=== PATIENT | female | born 1955 | race Caucasian/White ===

== ENCOUNTER → 2018-04-16 | Outpatient (CLI) | payer BC ==
--- NOTE | 2018-04-16 15:13 | DIREP ---
PROCEDURE:CT HEAD WITHOUT AND WITH CONTRAST TECHNIQUE:Axial cuts were obtained through the head. Then following the intravenous administration of contrast material, additional cuts were obtained through the head. The images were viewed at brain and bone settings. COMPARISON:None. INDICATIONS:NEUROLOGICAL DEFICIT PRESENT, MEMORY CHANGES FINDINGS: VENTRICLES:Normal. CEREBRUM:Normal. CEREBELLUM:Normal. BRAINSTEM:Normal. SKULL:Normal. SINUSES:Normal. OTHER:Negative. CONCLUSION: 1. CT scan of the brain appears normal. Dictated by: Ángel Castellanos M.D. on 04/16/2018 at 02:10 PM
--- NOTE | 2018-04-16 16:03 | DIREP ---
PROCEDURE:US ABDOMEN LIMITED COMPARISON:None. INDICATIONS:R10.31 RLQ ABD PAIN FINDINGS: LIVER:Normal hepatic echotexture. The left anechoic cyst, 2.6 cm. No solid lesion identified. Normal hepatopetal portal venous flow direction reported. BILIARY:Normal appearing gallbladder and biliary tree. No biliary duct dilatation, CBD 0.3 cm. Negative sonographic Gonzalez's sign. PANCREAS:Normal visualized segments. RIGHT KIDNEY:Normal size and echotexture 10.2 x 3.6 x 4.5 cm. No hydronephrosis. Upper pole cyst, 1.3 cm. OTHER:Negative. No ascites is identified. CONCLUSION: 1. No cholelithiasis, acute cholecystitis or biliary duct obstruction. 2. Right renal cyst 1.3 cm. 3. Left hepatic cyst 2.6 cm. Dictated by: Kourtney Abdalla MD on 04/16/2018 at 04:00 PM
== END | disposition home or self-care (01) ==
LOC: CT 13:55
PROVIDERS: ATTEND Nurse Practitioner Family
DX: N28.1 Cyst of kidney, acquired (principal); K76.89 Other specified diseases of liver; R41.3 Other amnesia; R29.818 Other symptoms and signs involving the nervous system
CPT/HCPCS: 70470; 76705; Q9965

== ENCOUNTER 2018-05-06 00:15 | Day surgery (SDC) | payer BC ==
[2018-05-03 11:44] VITALS: BP 146/76
[2018-05-03 12:12] LABS: BASOPHIL % 0.5 % (0.0-0.2); EOSINOPHIL # 0.2 10^3/uL (0.0-0.2); EOSINOPHIL % 2.8 % (0.0-5.0); HEMOGLOBIN 12.1 g/dL (12.0-15.0); LYMPHOCYTES # 1.9 10^3/uL (1.0-4.8); LYMPHOCYTES % 30.9 % (24.0-44.0); MEAN CELL HGB 26.3 pg (26-34); MEAN CELL HGB CONCENTRATION 31.9 g/dL (33-37); MEAN CORP VOLUME 82.4 fL (78-100); MEAN PLATELET VOLUME 9.9 fL (7.8-11.0); MONOCYTES # 0.5 10^3/uL (0.3-0.8); MONOCYTES % 7.6 % (5.0-12.0); NEUTROPHIL # 3.5 10^3/uL (1.8-7.7); NEUTROPHILS % 58.2 % (41.0-85.0); RED CELL DISTRIBUTION WIDTH 14.1 % (11.5-14.5)
[2018-05-03 12:25] LABS: CALCIUM 9.5 mg/dL (8.4-10.5); CARBON DIOXIDE 27.8 mmol/L (20.0-32)
[~2018-05-06] VITALS: Ht 164.3 cm; Wt 68.5 kg
[~2018-05-06 00:15] MED LIST: MOVIPREP POWDER PACKET PO STA; MULT-208 PO; ST.300CA PO; [UNRECOGNIZED DRUG - OTHER] PO
[2018-05-06] MEDS ORDERED: LACTATED RINGERS 1,000 ML ONE (05:20)
[2018-05-06] MEDS ORDERED: LACTATED RINGERS 1,000 ML IV SCH (06:00)
[2018-05-06 06:32] VITALS: BP 150/82
[2018-05-06] MEDS ORDERED: LIDOCAINE 2% VIAL ONE (06:48)
[2018-05-06] MEDS ORDERED: VERSED ONE (06:49)
[2018-05-06] MEDS ORDERED: NS 100ML 100 ML IV ONE (06:50)
[2018-05-06] MEDS ORDERED: DIPRIVAN IV ONE (06:50)
[2018-05-06] MEDS ORDERED: SUBLIMAZE ONE (06:50)
[2018-05-06 08:15] VITALS: BP 121/79
[2018-05-06 08:30] VITALS: BP 144/70
[2018-05-06] MEDS ORDERED: DEXL60CA2 PO (08:41)
[2018-05-06 08:45] VITALS: BP 132/82
[2018-05-06 09:00] VITALS: BP 158/84
--- NOTE | 2018-05-06 09:06 | OPH ---
DATE OF SURGERY: 05/06/2018 PREOPERATIVE DIAGNOSES: History of dyspepsia, need for screening. POSTOPERATIVE DIAGNOSES: 1. Peptic ulcer disease. 2. Diverticular disease of colon. 3. Check path on colon polyp. SURGEON: Maximilian Martin DO MANUSCRIPTS ARCHIVIST: OR staff. ANESTHESIA: Total intravenous anesthesia by Scott Bautista CRNA. PROCEDURES PERFORMED: 1. Esophagogastroduodenoscopy with biopsy. 2. Long flexible colonoscopy to cecum, cold forceps polypectomy in the sigmoid. SPECIMENS: 1. Gastric mucosa. 2. Sigmoid colon polyp, all to path. ESTIMATED BLOOD LOSS: 7 mL. COUNTS: At the completion of the case, counts were correct per OR staff. DESCRIPTION OF PROCEDURE: The patient is a very pleasant 62-year-old female known from previous evaluation. Prior to procedure, informed consent was obtained. At the time of the procedure, she was taken to the operative suite and placed in supine position. After time-out, she was placed laterally supine position. After adequate sedation, esophagogastroduodenoscope was advanced transorally with pneumoinsufflation distally in second portion of duodenum. Once the duodenum was adequately visualized, camera was slowly withdrawn to facilitate the visualization of the duodenal bulb and the pylorus. The pylorus and distal stomach showed some areas of apparently healed ulcerations with some scarring noted. The retroflexed maneuver was performed. The cardia and fundus were grossly normal. Camera was reduced. The stomach was biopsied in the distal stomach near the sites of healed ulcerations. With good hemostasis noted, stomach was decompressed. Scope was slowly withdrawn. Distal, mid and proximal esophagus within normal limits. Vocal cords are not visualized. Camera was removed. Procedure was discontinued. The patient remains in the OR. Timeout was previously completed. Digital rectal exam was performed. There were no masses. Next, the colonoscope was advanced transanally with pneumoinsufflation proximally to the level of the cecum. The quality of the prep was adequate. There is some retained particulate and also liquid stool. Camera was slowly withdrawn to facilitate visualization of the ascending colon, hepatic flexure, transverse colon, splenic flexure, descending colon and sigmoid. In the sigmoid colon, there was some occult diverticular disease. A small polyp was identified, it was removed with cold forceps. With good hemostasis noted, camera was further withdrawn to the remainder of the sigmoid colon and the rectum to the level of 5 cm, where it was retroflexed and reinserted. Anal verge was visualized within normal limits. Camera was reduced. Colon was decompressed. Colonoscope was removed. The patient tolerated this procedure well. There were no acute complications noted. Maximilian Martin DO DR: EAN/ema JOB# [id number] CC:
[2018-05-06 09:15] VITALS: BP 149/69
== END 2018-05-06 09:18 | disposition home or self-care (01) | DRG 951 ==
LOC: SDC 00:15
PROVIDERS: ATTEND Surgery
DX: Z12.11 Encounter for screening for malignant neoplasm of colon (principal); K30 Functional dyspepsia; K57.30 Diverticulosis of large intestine without perforation or abscess without bleeding; K63.5 Polyp of colon; K21.9 Gastro-esophageal reflux disease without esophagitis; E66.3 Overweight; Z68.25 Body mass index [BMI] 25.0-25.9, adult; Z79.899 Other long term (current) drug therapy; Z98.51 Tubal ligation status; Z82.49 Family history of ischemic heart disease and other diseases of the circulatory system; Z82.0 Family history of epilepsy and other diseases of the nervous system
CPT/HCPCS: 36415; 43239; 45380; 80053; 85025; 85610; 85730; 88305 ×2; J2001; J2250; J3010; J3490; J7050; J7120; G0121

== ENCOUNTER → 2018-05-22 | Outpatient (CLI) | payer BC, SELFPAY ==
[~2018-05-22] MED LIST changes: +DEXL60CA2 PO; -MOVIPREP POWDER PACKET PO STA
--- NOTE | 2018-05-22 16:12 | DIREP ---
PROCEDURE:US ABDOMEN LIMITED(SINGLE ORGAN-QUAD) COMPARISON:[facility], [place], US KIDNEYS-BILAT, 05/22/2018, 03:15 PM. [facility], [place], US ABDOMEN LIMITED(SINGLE ORGAN-QUAD), 04/16/2018, 02:53 PM. INDICATIONS:K76.89 HEPATIC CYST FINDINGS: CBD:0.3 cm GALLBLADDER:0.4 cm RIGHT KIDNEY:11.0 x 3.6 cm PANCREAS:Normal pancreas. LIVER:Normal hepatic parenchymal architecture. No focal hepatic lesion is identified. Hepatopetal flow in the portal vein. GALLBLADDER:Normal appearing gallbladder without evidence for gallbladder wall thickening or pericholecystic fluid. BILIARY:There is no biliary ductal dilatation. RIGHT KIDNEY:Normal. No hydronephrosis. Multiple simple cysts are noted with the largest measuring 1.6 x 1.4 x 1.1 cm. OTHER:Negative. No ascites is identified. CONCLUSION:Right renal cysts. Otherwise normal examination. Dictated by: [facility] Phys[facility] on 05/22/2018 at 04:04 PM ld
--- NOTE | 2018-05-22 16:13 | DIREP ---
PROCEDURE:US KIDNEYS-BILAT COMPARISON:[facility] [place], [place], US ABDOMEN LIMITED(SINGLE ORGAN-QUAD), 05/22/2018, 02:48 PM. [facility] [place], [place], US ABDOMEN LIMITED(SINGLE ORGAN-QUAD), 04/16/2018, 02:53 PM. INDICATIONS:N28.1 RENAL CYST RIGHT TECHNIQUE:Ultrasound examination was performed of the kidneys and bladder. FINDINGS: RIGHT KIDNEY:11.2 x 3.5 x 3.4 cm. Cortex: 1.0 cm LEFT KIDNEY:10.5 x 3.5 x 4.2 cm. Cortex: 1.4 cm BLADDER PRE VOID:3.4 x 3.8 x 2.2 cm. Volume: 19.6 ml BLADDER POST VOID:2.6 x 2.9 x 2.2 cm. Volume: 8.5 ml RIGHT KIDNEY: Normal. No hydronephrosis. Multiple simple cysts are noted with the largest measuring 1.2 x 1.0 x 1.0 cm. LEFT KIDNEY: Normal. No hydronephrosis. BLADDER:Normal. OTHER:Negative. CONCLUSION:Right renal cysts. Otherwise normal examination. Dictated by: JOIEA Physician on 05/22/2018 at 04:01 PM ld
== END | disposition home or self-care (01) ==
LOC: RAD 14:15
PROVIDERS: ATTEND Nurse Practitioner Family
DX: N28.1 Cyst of kidney, acquired (principal); K76.89 Other specified diseases of liver; K21.9 Gastro-esophageal reflux disease without esophagitis
CPT/HCPCS: 76705; 76770

== ENCOUNTER 2020-10-13 19:38 | Emergency (ER) | payer BC, SELFPAY ==
[~2020-10-13] VITALS: Ht 170.2 cm; Wt 68.0 kg
[~2020-10-13 19:38] MED LIST changes: -MULT-208 PO; +MULT-770 PO
--- NOTE | 2020-10-13 19:48 | NUR ---
CALLED TO TRIAGE PT CALLED ON THE NUMBER PROVIDED 2X ([phone]), PERSON STATED THIS IS THE WRONG NUMBER.
--- NOTE | 2020-10-13 19:55 | NUR ---
CALLED TO TRIAGE PT CALLED ON THE NUMBER ON FACESHEET ([phone]), NO ANSWER ON RECEIVED CALL DISCONNECTED.
[2020-10-13 20:00] VITALS: BP 113/58
--- NOTE | 2020-10-13 20:00 | NUR ---
ARRIVAL PT ARRIVED TO ED WITH COMPLAINT OF FATIGUE, HEADACHE, AND 102 FEVER SINCE 10/02. PT ALSO REPORTING NAUSEA, AND VOMITING THAT BEGAN LAST WEEK. RECENTLY SWABBED FOR RAPID COVID, RESULTS NEGATIVE. PT REPORTING WORSENING OF FATIGUE, AND LOOSE STOOL TODAY. PHENERGAN TAKEN AT 1715 TODAY. PT REPORTING GENERALIZED ABDOMINAL PAIN WITH PALPATION. PT SKIN HOT TO TOUCH. PT AAOX4, IN NAD WITH RR EVEN AND UNLABORED.
--- NOTE | 2020-10-13 20:00 | NUR ---
CALLED TO TRIAGE PT CALLED AT THE NUMBER ([phone]), ANSWER RECEIVED. PT CALLED AND RETRIEVED [facility].
[2020-10-13] MEDS ORDERED: ZOFRAN IV STA (20:39)
[2020-10-13] MEDS ORDERED: TYLENOL PO STA (20:39)
[2020-10-13] MEDS ORDERED: NS 1000ML 1,000 ML IV STA (20:39)
--- NOTE | 2020-10-13 20:46 | ER.PDOC ---
General Chief Complaint: Fever Stated Complaint: N/V/D Time seen by MD: 20:43 Source: patient Exam Limitations: no limitations History of Present Illness Initial Comments Fever/nausea/vomiting/diarrhea and headache for 12 days. Severity/Quality: moderate, dullness Abdominal Pain Onset Location: Epigastric Associated Symptoms (vomiting): freq vomitng Associated Symptoms (diarrhea): watery Allergies: Coded Allergies: No Known Allergies (Unverified , 05/03/18) Home Meds Reported Medications Dexlansoprazole (DEXILANT) 60 Mg Cap., 1 CAP PO DAILY, #90 CAP 3 Refills 05/06/18 [Estovent] No Conflict Check, 1 TAB PO DAILY24 05/03/18 Multivits Min/Iron/Fa/Herb#186 (HAIR, SKIN & NAILS CAPLET) 1 Each Tablet, 1 EACH PO DAILY24, TABLET 05/03/18 Allen's Wort (ALLEN'S WORT) 300 Mg Capsule, 300 MG PO DAILY24, CAPSULE 05/03/18 Vital Signs First Vital Signs Date Time Temp Pulse Resp B/P (MAP) Pulse Ox O2 Delivery O2 Flow Rate FiO2 10/13/20 20:00 102.2 66 20 94 10/13/20 20:00 113/58 (76) Room Air Last Vital Signs Date Time Temp Pulse Resp B/P (MAP) Pulse Ox O2 Delivery O2 Flow Rate FiO2 10/13/20 20:00 102.2 66 20 113/58 (76) 94 Room Air Past Medical History Medical History: no pertinent history Surgical History: tubal Family History Significant Family History: no pertinent family hx Social History Alcohol Use: none Drug Use: none Constitutional: see HPI EENTM: no symptoms reported Respiratory: no symptoms reported Cardiovascular: no symptoms reported Gastrointestinal: see HPI Genitourinary: no symptoms reported All Other Systems: Reviewed and Negative Physical Exam General Appearance: No Apparent Distress, WD/WN HEENT: PERRL/EOMI Neck: Non-Tender, Full Range of Motion, Supple, Normal Inspection Respiratory: chest non-tender, lungs clear, normal breath sounds, no respiratory distress, no accessory muscle use Cardiovascular: Normal Peripheral Pulses, Regular Rate, Rhythm, No Edema, No Gallop, No JVD, No Murmur Gastrointestinal: Normal Bowel Sounds, No Organomegaly, No Pulsatile Mass, Tenderness (epigastric) Back: Normal Inspection, No CVA Tenderness, No Vertebral Tenderness Extremities: Normal Range of Motion, Non-Tender, Normal Inspection, No Pedal Edema, No Calf Tenderness, Normal Capillary Refill, Pelvis Stable Neurologic/Psychiatric: microelectronics engineer II-XII NML as Tested, No Motor/Sensory Deficits, Alert, Normal Mood/Affect, Oriented x 3 Skin: Normal Color, Warm/Dry Lymphatic: No Adenopathy Results/Orders Results/Orders Orders - HAROON KIM MD Cbc With Auto Diff (10/13/20 20:39) Comprehensive Metabolic Panel (10/13/20 20:39) Lipase (10/13/20 20:39) PT (10/13/20 20:39) Partial Thromboplastin Time. (10/13/20 20:39) Urinalysis (10/13/20 20:39) Ct Abd/Pel With Iv Contrast (10/13/20 20:39) Influenza A&B (10/13/20 20:39) Strep Screen (10/13/20 20:39) Covid19 Antigen Rosemary Rajni (10/13/20 20:39) 0.9 % Sodium Chloride (Ns 1000ml) (10/13/20 20:39) Ondansetron Hcl/Pf (Zofran) (10/13/20 20:39) Acetaminophen (Tylenol) (10/13/20 20:39) Blood Culture (10/13/20 20:43) Procalcitonin (10/13/20 20:43) 0.9 % Sodium Chloride (Ns 1000ml) (10/13/20 20:47) Acetaminophen (Tylenol) (10/13/20 20:47) Ondansetron Hcl/Pf (Zofran) (10/13/20 20:47) Lactic Acid(Ml) (10/13/20 20:49) Acetaminophen (Tylenol) (10/13/20 21:34) Promethazine Hcl (Phenergan) (10/13/20 21:38) 0.9 % Sodium Chloride (Ns 100ml) (10/13/20 21:38) Promethazine Hcl (Phenergan) (10/13/20 21:59) Vital Signs Date Time Temp Pulse Resp B/P (MAP) Pulse Ox O2 Delivery O2 Flow Rate FiO2 10/13/20 20:00 102.2 66 20 113/58 (76) 94 Room Air 10/13/20 20:00 102.2 66 20 10/13/20 20:00 102.2 66 20 94 Administered Medications Medications (Trade) Dose Ordered Sig/Camila Route PRN Reason Start Time Stop Time Status Last Admin Dose Admin Ondansetron HCl (Zofran) 4 mg STAT STAT IV 10/13/20 20:39 10/13/20 20:42 DC 10/13/20 21:11 4 MG Sodium Chloride 1,000 ml @ 1,200 mls/hr Q50M STAT IV 10/13/20 20:39 10/13/20 21:28 DC 10/13/20 21:11 1,200 MLS/HR Laboratory Tests Test 10/13/20 21:00 10/13/20 21:50 White Blood Count 4.7 10^3/uL (4.5-11.0) Red Blood Count 4.00 10^6/uL (4.00-5.20) Hemoglobin 10.7 g/dL (12.0-15.0) L Hematocrit 31.7 % (36.0-46.0) L Mean Corpuscular Volume 79.3 fL (78-100) Mean Corpuscular Hemoglobin 26.8 pg (26-34) Mean Corpuscular Hemoglobin Concent 33.8 g/dL (33-36.5) Red Cell Distribution Width 13.2 % (11.5-14.5) Platelet Count 179 10^3/uL (150-400) Mean Platelet Volume 10.8 fL (7.8-11.0) Neutrophils (%) (Auto) 80.9 % (41.0-85.0) Lymphocytes (%) (Auto) 11.9 % (24.0-44.0) L Monocytes (%) (Auto) 6.6 % (5.0-12.0) Neutrophils # (Auto) 3.8 10^3/uL (1.8-7.7) Lymphocytes # (Auto) 0.56 10^3/uL1 (1.0-4.8) L Monocytes # (Auto) 0.3 10^3/uL (0.3-0.8) Absolute Immature Granulocyte (auto 0.02 10^3 u/L (0-2) Absolute Eosinophils (auto) 0.0 10^3/uL (0.0-0.2) Immature Granulocytes % 0.40 % (0.00-0.50) Eosinophils % 0.0 % (0.0-5.0) Basophils % 0.2 % (0.0-0.2) Basophils # 0.0 10^3/uL (0.0-0.1) Prothrombin Time 10.1 SEC (9.3-11.3) Prothrombin Time INR (Non-Therap) 1.0 Activated Partial Thromboplast Time 30.6 SEC (24.67-30.72) Sodium Level 133 mmol/L (132-145) Potassium Level 3.7 mmol/L (3.6-5.2) Chloride Level 100.0 mmol/L (96-109) Carbon Dioxide Level 22.9 mmol/L (20.0-32) Anion Gap 13.8 Blood Urea Nitrogen 7 mg/dL (7-18) Creatinine 0.85 mg/dL (0.59-1.40) Estimated GFR () 81.2 (>/=60) Est GFR (CKD-EPI)(Non-Afr [place]) 67.1 (>/=60) BUN/Creatinine Ratio 8.0 Glucose Level 109 mg/dL (70-110) Lactic Acid Level 0.5 mmol/L (0.5-1.9) Calcium Level 8.4 mg/dL (8.4-10.5) Total Bilirubin 0.4 mg/dL (0.2-1.0) Aspartate Amino Transferase (AST) 25 U/L (0-35) Alanine Aminotransferase (ALT) 25 U/L (12-78) Alkaline Phosphatase 72 U/L (50-136) Total Protein 6.7 g/dL (6.4-8.2) Albumin 3.3 g/dL (3.4-5.0) L Globulin 3.4 Albumin/Globulin Ratio 0.970 Lipase 142 U/L (114-286) Procalcitonin < 0.05 ng/mL (0.05-0.5) L Influenza Type A Antigen NEGATIVE (NEG) Influenza B Immunofluorescence NEGATIVE (NEG) SARS-CoV-2 Antigen (Rapid) POSITIVE (NEGATIVE) *A Group A Streptococcus Screen NEGATIVE (NEGATIVE) Urine Collection Type CCMS Urine Color YELLOW (YELLOW) Urine Appearance CLEAR (CLEAR) Urine Bilirubin NEGATIVE MG/DL (NEGATIVE) Urine Ketones 40 mg/dL (NEGATIVE) Urine Specific [place] 1.020 (1.005-1.035) Urine pH 8.0 (5.0-6.0) Urine Protein NEGATIVE (NEGATIVE) Urine Urobilinogen 1.0 (NEGATIVE) H Urine Nitrate NEGATIVE (NEGATIVE) Urine Leukocyte Esterase NEGATIVE (NEGATIVE) Urine Blood TRACE (NEGATIVE) Urine RBC 0-2 RBC/HPF (NONE SEEN) Urine WBC NONE SEEN WBC/HPF (0-2) Urine Bacteria RARE (NONE SEEN) Urine Glucose NEGATIVE (NEGATIVE) Progress Progress CT abdomen/pelvis: Colonic diverticular without definitive evidence of diverticulitis. 2. Benign hemangioma seen within the liver. 3. Patchy ground-glass opacities in the bilateral lower lobes more pronounced on the right than the left. Differential diagnosis does include viral infection such as Covid19. 4. Additional findings described above. Patient feeling better and labs are unremarkable. ER DEPART Departure Time of Disposition: 23:01 Disposition: 01 HOME, SELF-CARE Impression: Primary Impression: Pneumonia due to COVID-19 virus Additional Impressions: Nausea & vomiting Diarrhea Condition: Stable Referrals: ELIER TURCIOS MD (PCP) PRIMARY CARE PROVIDER Additional Instructions: Z pack Phenergan Tylenol Vitamin C, D and Zinc Self quarantine at home for 10 days F/U with PCP in 3-5 days Return to ED if worsening or concerns Duration or Time Spent with Pa: 60 min Problem Qualifiers Additional Impressions: Nausea & vomiting Vomiting type: unspecified Vomiting Intractability: intractable Qualified Codes: R11.2 - Nausea with vomiting, unspecified Diarrhea Diarrhea type: unspecified type Qualified Codes: R19.7 - Diarrhea, unspecified HAROON KIM MD Oct 13, 2020 20:46
[2020-10-13] MEDS ORDERED: ZOFRAN ONE (20:47)
[2020-10-13] MEDS ORDERED: NS 1000ML 1,000 ML ONE (20:47)
[2020-10-13] MEDS ORDERED: TYLENOL PO ONE ×2 (20:47→21:34)
[2020-10-13 21:19] LABS: BASOPHIL % 0.2 % (0.0-0.2); LYMPHOCYTES # 0.56 10^3/uL1 (1.0-4.8); LYMPHOCYTES % 11.9 % (24.0-44.0); MEAN CORP HGB 26.8 pg (26-34); MONOCYTES # 0.3 10^3/uL (0.3-0.8); MONOCYTES % 6.6 % (5.0-12.0); NEUTROPHIL # 3.8 10^3/uL (1.8-7.7); NEUTROPHILS % 80.9 % (41.0-85.0); PLATELET COUNT 179 10^3/uL (150-400); RED CELL DISTRIBUTION WIDTH 13.2 % (11.5-14.5)
--- NOTE | 2020-10-13 21:26 | NUR ---
VERBAL ORDERS PT REPORTING WORSENING OF ABDOMINAL DISCOMFORT AND NAUSEA. EDP DR. KIM MADE AWARE. ORDERS RECEIVED FOR PHENERGAN 25MG IV. ORDER READ BACK AND VERIFIED.
[2020-10-13 21:33] LABS: CALCIUM 8.4 mg/dL (8.4-10.5); CARBON DIOXIDE 22.9 mmol/L (20.0-32)
[2020-10-13] MEDS ORDERED: NS 100ML 100 ML IV ONE (21:38)
[2020-10-13] MEDS ORDERED: PHENERGAN ONE (21:38)
--- NOTE | 2020-10-13 21:42 | NUR ---
COVID RESULTS POSITIVE, EDP NOTIFIED
--- NOTE | 2020-10-13 21:45 | NUR ---
FAMILY CALLED CALL PLACED TO THE PT'S FAMILY, REQUESTED BY PT AT THE PHONE NUMBER ([phone]). UPDATED THE FAMILY ON PT CONDITION, PLAN OF CARE, AND ESTIMATED WAIT TIME. ALL QUESTIONS ANSWERED
[2020-10-13] MEDS ORDERED: PHENERGAN IV STA (21:59)
[2020-10-13 22:22] LABS: APPEARANCE,URINE CLEAR (CLEAR); BILIRUBIN,URINE NEGATIVE (NEGATIVE); UA COLOR YELLOW (YELLOW)
--- NOTE | 2020-10-13 22:47 | DIREP ---
PROCEDURE:CT ABDOMEN/PELVIS W/ CONTRAST COMPARISON:None. INDICATIONS:Nausea/vomiting/diarrhea/abdominal pain TECHNIQUE:Axial images were created through the abdomen and pelvis with non-ionic intravenous contrast material. No oral contrast was administered. Sagittal and coronal reconstructions were performed from source images. FINDINGS: LUNG BASES:Ground-glass opacities are seen in the right lower lobe and portions of the left lower lobe. LIVER:There is a peripheral puddling enhancement seen involving the posterior segment right lobe liver in segment 8 that measures 2.1 cm and probably represents a benign hemangioma. There is a 2nd lesion with similar or peripheral enhancement seen abutting the posterior surface of segment 8 that measures 1.5 cm and probably represents either a cyst or hemangioma. BILIARY:Normal. No visible dilatation or calcification. PANCREAS:Normal. No lesion, fluid collection, ductal dilatation, or atrophy. SPLEEN:Normal size spleen with multiple calcified granuloma. ADRENALS:Normal. No mass or enlargement. URINARY TRACT:There are several small cysts seen involving both kidneys. The largest on the right measures 2.1 cm. There is no evidence of hydronephrosis. Contrast is seen being excreted within the collecting system. There is no evidence of calculus in either ureter. AORTA/VASCULAR:Normal. No aneurysm. RETROPERITONEUM:Normal. No mass or adenopathy. BOWEL/MESENTERY:Small bowel is normal caliber. The terminal ileum is unremarkable. Appendix is not identified. Normal amounts of stool are seen within the colon. There are numerous scattered sigmoid diverticula with mild thickening of the sigmoid colon. There is no definitive stranding to suggest diverticulitis. No abscess formation or free air appear ABDOMINAL WALL:Normal. No mass or hernia. PELVIC ORGANS:Normal. No visible mass. Pelvic organs appropriate for patient age. BONES:Degenerative changes seen in the lumbar spine particularly at L3/L4, L4/L5 and L5/S1. There is a benign hemangioma within the vertebral body of L4. OTHER:Negative. CONCLUSION: 1. Colonic diverticular without definitive evidence of diverticulitis. 2. Benign hemangioma seen within the liver. 3. Patchy ground-glass opacities in the bilateral lower lobes more pronounced on the right than the left. Differential diagnosis does include viral infection such as Covid19. 4. Additional findings described above. Dictated by: Martin Shepherd MD on 10/13/2020 at 10:38 PM
[2020-10-13 23:48] VITALS: BP 127/74
== END 2020-10-13 23:27 | disposition home or self-care (01) ==
LOC: ER 19:38
DX: U07.1 COVID-19 (principal); J12.89 Other viral pneumonia; R11.2 Nausea with vomiting, unspecified; R10.13 Epigastric pain; R19.7 Diarrhea, unspecified; Z79.899 Other long term (current) drug therapy
CPT/HCPCS: 36415; 74177; 80053; 81000; 83605; 83690; 84145; 85025; 85610; 85730; 87040 ×2; 87070; 87426; 87804 ×2; 87880; 96361; 96374; 96375; 99285; A9150 ×2; J2405; J2550; J7030; J7050; Q9965